=== PATIENT | male | born 1965 | race Caucasian/White ===

== ENCOUNTER 2024-02-12 08:51 | Emergency (ER) | payer SELFPAY ==
[2024-02-12 08:53] VITALS: BP 207/130; PULSE 82; RESP 16; TEMP 36.6; O2SAT 98
[2024-02-12 09:18] VITALS: BMI 30.9
--- NOTE | 2024-02-12 10:01 | EX.ED.GUMALE ---
HPI History of Present Illness Chief Complaint: Male Pain/Injury Informant: patient Narrative Narrative: 58-year-old male presenting to the emergency room with left testicle left back pain. Patient states that yesterday he developed a pain in his left testicle that radiated into the left low back. He notes that the back pain is worse with certain movements. He denies any dysuria urinary frequency hematuria dark urine or difficulty emptying the bladder. He notes the testicle is not tender to palpation. He notes he is sexually active and does not use protection. He denies any penile drainage or lesions. He has had prior hydrocele removal through [facility] urology but does not recall the surgeon's name. He states that the surgery occurred several years ago and he had infections at the time of the surgery but has not had any difficulties over the past several years. He denies any fevers. No abdominal pain. He points to more of his SI region as the area that hurts in the back. Again no rashes. No neurologic deficits. No known trauma. [facility] Medical History Cholecystectomy planned Hydrocele Stroke Home Medications ?Medication ?Instructions ?Recorded ?Last Taken ?Type albuterol sulfate 90 mcg/actuation 2 puff inhalation Q6H PRN 06/22/23 Unknown History aerosol inhaler shortness of breath or wheezing fluticasone 100 mcg-salmeterol 50 1 inh inhalation BID 06/22/23 Unknown History mcg/dose blistr powdr for inhalation (Advair Diskus) Allergy/AdvReac Type Severity Reaction Status Date / Time No Known Allergies Allergy Verified 02/12/24 08:55 Family History Father Alcoholism Cancer CVA (cerebral vascular accident) Mother Breast cancer Brother Hypertension Surgical History H/O: knee surgery History of appendectomy Social History Smoking Status: Never smoker alcohol intake: never ROS ROS ED Constitutional Constitutional ED: Denies chills, fever(s) or weight loss Eyes Eyes: Denies change in vision or diplopia ENT ENT ED: Denies ear pain, rhinorrhea or sore throat Cardiovascular Cardiovascular: Denies chest pain, orthopnea, palpitations or racing heartbeat Respiratory/Chest Respiratory/Chest: Denies cough, dyspnea or orthopnea Gastrointestinal Gastrointestinal: Denies abdominal pain, diarrhea, nausea or vomiting Genitourinary Genitourinary ED: Reports other Details: Left testicle pain ; Denies dysuria, hematuria or urinary frequency Musculoskeletal Musculoskeletal: Reports back pain; Denies arthralgias or myalgias Integumentary Denies abscess or rash Neurologic Neurologic: Denies headache(s) or weakness Psychiatric Psychiatric: Denies anxiety, depression, suicidal ideation or suicidal thoughts Endocrine Endocrinology: Denies polydipsia, polyphagia or polyuria Allergic/Immunologic Allergic/Immunologic ED: Denies mouth swelling, tongue swelling or urticaria EXAM Physical Exam Const Vital Signs: 02/12/24 08:53 02/12/24 10:34 02/12/24 11:00 Temperature 98 F Temperature Source Oral Pulse Rate 82 79 Respiratory Rate 16 17 Blood Pressure 207/130 H 195/120 H 190/108 H Blood Pressure Mean 155 145 135 Pulse Ox 98 98 Oxygen Delivery Method Room Air 02/12/24 12:00 Temperature Temperature Source Pulse Rate 78 Respiratory Rate 18 Blood Pressure 204/112 H Blood Pressure Mean 142 Pulse Ox Oxygen Delivery Method Positive well nourished and well developed General Appearance ED: well developed HEENT Reports normocephalic, head/scalp atraumatic and moist mucous membranes Eyes PERRL and EOMs intact bilaterally Neck no lymphadenopathy, supple and no JVD Resp normal respiratory effort and clear to auscultation bilaterally Cardio regular rate, regular rhythm and no murmurs GI normal to inspection, nondistended, normoactive bowel sounds and non-tender Palpation: soft Narrative: Circumcised male. Testicles are nontender. I do not appreciate any rashes or penile drainage. Normal testicular lie. Back/Spine no CVA tenderness and normal ROM Back/Spine Narrative: Patient has very focal tenderness near the left SI region and in the lower lumbar paraspinal musculature. I do not appreciate any rashes. No decrease in range of motion. Extremity normal to inspection Extremity Narrative: +2 Achilles and patellar reflexes bilaterally normal sensation. Normal muscular tone. General Extremety ED: Negative for edema General Extremity: Negative for edema Neuro oriented x3 and CN's II-XII intact bilaterally Sensorium / Orientation: alert Motor Exam: strength 5/5 throughout Psych mental status grossly normal Mood & Affect: Negative for depressed or tearful Skin no rashes or lesions noted and no wounds MDM MDM MDM Narrative Medical decision making narrative: Differential diagnosis includes ureterolithiasis diverticulitis SI joint pain referred pain UTI orchitis epididymitis testicular torsion. Patient's white count 7.5 hemoglobin 15.8 platelet count 324. BMP within normal limits glucose 105. Urinalysis with no obvious infection or hematuria. CT of the abdomen pelvis without IV contrast demonstrates no obvious ureterolithiasis or inflammatory condition. Testicular ultrasound was negative. Patient has remained hypertensive but he does note a history of hypertension does not recall what he takes for it. He also notes he has a history of whitecoat syndrome. Patient received IV fluids and Toradol. At this point I think the patient can be discharged home. This may be a referred pain from SI joint pain with think is reasonable to start him on some anti-inflammatories would ask for primary care follow-up later this week. History & Record Review Discussion w/independent historian: Patient Lab Data Attestation: I reviewed the patient's lab results. Labs: Laboratory Results - last 24 hr 02/12/24 02/12/24 10:35 10:40 WBC 7.5 RBC 5.55 Hgb 15.8 Hct 48.7 MCV 87.7 MCH 28.5 MCHC 32.4 RDW Std Deviation 41.4 RDW Coeff of Rachell 12.9 Plt Count 324 MPV 9.0 Immature Gran % (Auto) 0.400 Neut % (Auto) 66.3 Lymph % (Auto) 23.2 [place] % (Auto) 8.3 Eos % (Auto) 1.3 Baso % (Auto) 0.5 Absolute Neuts (auto) 4.9 Absolute Lymphs (auto) 1.73 Nucleated RBC % 0 Sodium 140 Potassium 3.6 Chloride 108 H Carbon Dioxide 25.0 Anion Gap 7 BUN 15 Creatinine 1.02 Estim Creat Clear Calc 83.31 Est GFR (MDRD) Af Amer 96 Est GFR (MDRD) Non-Af 79 BUN/Creatinine Ratio 14.7 Glucose 105 Calcium 9.0 Urine Color Yellow Urine Clarity Clear Urine pH 6.5 Ur Specific [place] 1.015 Urine Protein 15 H Urine Glucose (UA) Normal Urine Ketones Negative Urine Occult Blood Negative Urine Nitrite Negative Urine Bilirubin Negative Urine Urobilinogen Normal Ur Leukocyte Esterase Negative Urine RBC 0-5 SEEN Urine WBC 0-5 SEEN Ur Squamous Epith Cells 0-5 SEEN Urine Bacteria 0 SEEN Urine Mucus 1+ Radiography Diagnostic Testing: Clinical Impression(s) from Imaging Studies Abdomen/Pelvis CT 02/12/24 10:43 IMPRESSION: Fatty infiltration of the liver. Status post cholecystectomy. No evidence of a ureteral obstruction. Small left inguinal hernia containing fat. Sigmoid diverticulosis. Electronically Signed: Reilly Zhao MD at 11:22 EDT , Testicular Ultrasound 02/12/24 11:02 IMPRESSION: Normal bilateral testicles. Electronically Signed: Bertrand Mohr MD at 12:34 EDT , Discharge Plan Triage Chief Complaint: Male Pain/Injury ED Provider: Grayson Laguerre Dx/Rx/DC Orders Prescriptions: No Action fluticasone propion-salmeterol [Advair Diskus] 100-50 mcg/dose blister with device 1 inh inhalation BID albuterol sulfate 90 mcg/actuation HFA aerosol inhaler 2 puff inhalation Q6H PRN (Reason: shortness of breath or wheezing) Primary Care Provider: Dalia Ahumada Referrals: [facility] Dalia Calvert [Primary Care Provider] - Print Language: Korean
[2024-02-12] MEDS: Ketorolac 30 MG/ML Syringe IV (10:30)
[2024-02-12] MEDS: 0.9% Normal Saline (1000mL) 1,000 ML 250 ML IV (10:30)
[2024-02-12 10:34] VITALS: BP 195/120
--- NOTE | 2024-02-12 10:43 | CT_ITS ---
STUDY: CT ABDOMEN AND PELVIS WITHOUT CONTRAST REASON FOR EXAM: Male, 58 years old. Kidney Stone RADIATION DOSAGE (If Supplied By Facility): CTDIvol = ( 9.61 ) mGy, DLP = ( 844.48 ) mGycm TECHNIQUE: Transaxial images were obtained from the dome of the diaphragm to the symphysis pubis without oral contrast, and without intravenous contrast. Sagittal and coronal images were reconstructed. Individualized dose optimization techniques were used for this CT. COMPARISON: None. FINDINGS: Calcified granuloma in the right lower lobe. Mild increased markings in the anterior aspect of the left lower lobe suggest malignant atelectasis and/or scarring. The visualized portions of the heart are within normal limits. There is decreased attenuation of the liver consistent with steatosis. There are surgical clips in the gallbladder fossa consistent with a prior cholecystectomy. Normal spleen. Normal pancreas. Normal bilateral adrenal glands. Normal right kidney. Normal left kidney. Normal visualized stomach. Normal small intestine. There are multiple colonic diverticula consistent with diverticulosis. The appendix is visualized and appears normal. There is scattered atherosclerotic calcification of the abdominal aorta, without a demonstrated aneurysm. Normal inferior vena cava. Normal retroperitoneum. Normal urinary bladder. There is a left-sided inguinal hernia containing adipose tissue. Small benign-appearing bilateral inguinal lymph nodes. There are degenerative changes of the visualized lumbar spine. This is worse at the L5-S1 level. CT/Abdomen/Pelvis without Cont IMPRESSION: Fatty infiltration of the liver. Status post cholecystectomy. No evidence of a ureteral obstruction. Small left inguinal hernia containing fat. Sigmoid diverticulosis. Electronically Signed: Reilly Zhao MD at 11:22 EDT ,
[2024-02-12 10:46] LABS: Absolute Lymphocyte Count 1.73 X10^3/uL (0.83-4.51); Absolute Neutrophil Count 4.9 X10^3/uL (2.0-7.7); Basophil# 0.04 X10^3/uL; Basophil% 0.5 % (0-1); Eosinophils% 1.3 % (0-5); Hematocrit 48.7 % (40-54); Hemoglobin 15.8 g/dL (13.0-16.5); Lymphocyte # 1.73 X10^3/ul (0.83-4.51); Lymphocyte % 23.2 % (19-41); Mean Corp Hgb Conc 32.4 g/dL (32-36); Mean Corpuscular Hgb 28.5 pg (27.0-32.0); Mean Corpuscular Volume 87.7 fL (80-94); Monocyte# 0.62 X10^3/uL; Monocyte% 8.3 % (0-10); NRBC Flagged by Analyzer 0 % (0-5); Neutrophil # 4.93 X10^3/uL (2.7-7.7); Neutrophil % 66.3 % (47-70); Platelet Count 324 K/mm3 (150-450); RBC Distribution Width CV 12.9 % (11.6-14.6); RBC Distribution Width SD 41.4 fl (35.1-43.9); Red Blood Count 5.55 M/mm3 (4.6-6.2); White Blood Count 7.5 K/mm3 (4.4-11.0)
[2024-02-12 10:47] LABS: Bacteria 0 SEEN /hpf (None Seen)
[2024-02-12 10:50] LABS: Color, Urine Yellow (Yellow); Glucose, Dipstick Normal (Normal); Ketone-Dipstick Negative (Negative); Leukocyte Esterase-Dipstick Negative /ul (Negative); Nitrite-Dipstick Negative (Negative); Occult Blood-Urine Negative /ul (Negative); Protein-Dipstick 15 mg/dl (Negative); Specific Gravity, Urine 1.015 (1.002-1.030); Urine Bilirubin Dipstick Negative (Negative); Urine Clarity Clear (Clear); Urine Urobilinogen Normal (Normal); Urine pH 6.5 (5.0 - 8.0)
[2024-02-12 11:00] VITALS: BP 190/108; PULSE 79; RESP 17; O2SAT 98
--- NOTE | 2024-02-12 11:02 | US_ITS ---
STUDY: SCROTUM ULTRASOUND REASON FOR EXAM: Male, 58 years old. left testicular pain x2days TECHNIQUE: Ultrasound evaluation of the scrotum was performed with color Doppler and static smith-scale imaging. COMPARISON: None. FINDINGS: RIGHT TESTICLE INTRATESTICULAR: There is a normal size of the right testicle. The right testicle measures 3.7 x 3.1 x 2.0 cm. There is a homogenous echotexture. There is normal arterial and normal venous vascularity. There is no demonstrated right testicular mass or cyst. EXTRATESTICULAR: The epididymis is normal in size. The epididymis head measures 0.7 x 1.2 x 1.3 cm. There is normal vascularity of the epididymis. There is no demonstrated epididymal cystic structure. There is a small hydrocele. There is no demonstrated varicocele. There is no demonstrated extratesticular mass or cyst. LEFT TESTICLE INTRATESTICULAR: There is a normal size of the left testicle. The left testicle measures 3.4 x 2.6 x 1.9 cm. There is a homogenous echotexture. There is normal arterial and normal venous vascularity. There is no demonstrated left testicular mass or cyst. EXTRATESTICULAR: The epididymis is normal in size. The epididymis head measures 0.9 x 0.9 x 1.0 cm. There is normal vascularity of the epididymis. There is no demonstrated epididymal cystic structure. There is no demonstrated hydrocele. There is no demonstrated varicocele. There is no demonstrated extratesticular mass or cyst. US/Testicular with Arterial Flow IMPRESSION: Normal bilateral testicles. Electronically Signed: Bertrand Mohr MD at 12:34 EDT ,
[2024-02-12 11:18] LABS: Anion Gap 7 (5-15); BUN 15 mg/dL (7-18); BUN/Creat Ratio 14.7 RATIO (10-20); Chloride 108 mmol/L (98-107); Creatinine, Serum 1.02 mg/dL (0.70-1.30); EST Glomerular Filtration Rate 79 mL/min (>60); Est Glom Filt Rate - Afr Amer 96 mL/min (>60); Estimated Creatinine Clearance 83.31 ml/min; Glucose 105 mg/dL (74-106); Potassium 3.6 mmol/L (3.5-5.1); Sodium Level 140 mmol/L (136-145)
[2024-02-12 12:00] VITALS: BP 204/112; PULSE 78; RESP 18
[2024-02-12 12:12] LABS: Mucous, Urine 1+ /hpf (<or=2+); Red Blood Cells-Urine 0-5 SEEN /hpf (0-5); Squamous Epithelial Cells - UA 0-5 SEEN /hpf (0-5); White Blood Cells 0-5 SEEN /hpf (0-5)
[2024-02-12 13:04] VITALS: BP 188/107; PULSE 78; RESP 18; TEMP 36.6; O2SAT 98
== END 2024-02-12 13:08 | disposition home or self-care (01) ==
PROVIDERS: Emergency Provider Emergency Medicine; Visit Provider Emergency Medicine
DX: M54.9 Dorsalgia, unspecified (principal); N50.812 Left testicular pain; Z90.49 Acquired absence of other specified parts of digestive tract; Z86.73 Personal history of transient ischemic attack (TIA), and cerebral infarction without residual deficits; K76.0 Fatty (change of) liver, not elsewhere classified; K40.90 Unilateral inguinal hernia, without obstruction or gangrene, not specified as recurrent; K57.90 Diverticulosis of intestine, part unspecified, without perforation or abscess without bleeding
CPT/HCPCS: 74176; 76870; 80048; 81001; 85025; 93976; 96361; 96374; 99283; J7030; A4216